=== PATIENT | male | born 1950 | race Caucasian/White ===

== ENCOUNTER 2021-10-26 16:21 | Emergency (ER) | payer OTHER ==
[2021-10-26 16:34] VITALS: BP 145/79; PULSE 75; TEMP 97.5; BMI 24.3
== END 2021-10-27 09:27 | disposition home or self-care (01) ==
LOC: JERFT 16:21 → JER 16:21
DX: S00.512A Abrasion of oral cavity, initial encounter (principal); Y99.9 Unspecified external cause status
CPT/HCPCS: 99281-25